=== PATIENT | female | born 1945 | race Caucasian/White ===

== ENCOUNTER 2020-05-11 17:52 | Emergency (ER) | payer MEDICARE ==
[2020-05-11] MEDS ORDERED: Lidocaine 1% w/Epinephrine 1:100K 30 ML VIAL ONE (18:14)
--- NOTE | 2020-05-11 18:19 | RAD ---
Exam:4 views left knee HISTORY: Trauma. Fall. Pain. COMPARISON: None FINDINGS: No joint effusion. Moderate narrowing of the medial compartment. No fractures or malalignme nt. Mild bone demineralization. IMPRESSION: No fracture.
== END 2020-05-11 19:16 | disposition home or self-care (01) ==
LOC: NAV ERS 17:52
DX: S81.012A Laceration without foreign body, left knee, initial encounter (principal); I10 Essential (primary) hypertension; E11.9 Type 2 diabetes mellitus without complications; E78.5 Hyperlipidemia, unspecified; E78.00 Pure hypercholesterolemia, unspecified; J44.9 Chronic obstructive pulmonary disease, unspecified; Z79.4 Long term (current) use of insulin; Z79.51 Long term (current) use of inhaled steroids; Z79.899 Other long term (current) drug therapy; W10.1XXA Fall (on)(from) sidewalk curb, initial encounter
CPT/HCPCS: 12004; J2001